=== PATIENT | male | born 1990 | race Caucasian/White ===

== ENCOUNTER 2016-09-23 20:22 | Emergency (ER) | payer OTHER, SELFPAY ==
[2016-09-23 20:31] VITALS: O2SAT 99
[2016-09-23] MEDS ORDERED: Tetcaine HCl OPHTHALMIC OP ONE ×2 (20:40→20:49)
[2016-09-23] MEDS ORDERED: Fluor-I-Strip/Ful-Flo OP ONE ×2 (20:40→20:49)
[2016-09-23] MEDS ORDERED: Eye-Stream Solution ONE (20:56)
[2016-09-23] MEDS ORDERED: Adacel Vial IM ONE ×2 (21:05→21:14)
[2016-09-23] MEDS ORDERED: Eye-Stream Solution OP ONE (21:05)
[2016-09-23] MEDS ORDERED: Ciloxan OPHTH OP ONE (21:05)
[2016-09-23] MEDS ORDERED: Ciloxan OPHTH ONE (21:11)
--- NOTE | 2016-09-23 21:34 | ERPHSYRPT ---
- History of Present Illness Time Seen by Provider: 09/23/16 20:25 Source: patient Patient Subjective Stated Complaint: Pt sts was cutting something with dremel and blade particle struck left eye. Pt sts vision is blurry. Denies wearing contacts or glasses. Sts no pain in eye. Triage Nursing Assessment: Pt alert, oriented, answers all questions appropriately. Skin p/w/d, resps non-labored. Pt ambulatory without difficulty, steady gait noted. Lt eye appears blood-shot. Possible area of injury noted to medial aspect of sclera. Redness noted to upper eyelid. Physician History: CC: left eye injury Hx: 26 y/o male was using a dremel tool. While eyes closed something struck left eye and bounced off the led. He had some blurry vision and a little redness in the eye so came to ER. No hx of glasses or contacts. Unsure last tetanus vaccine. 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 due to severe ADHD) - Past Surgical History Past Surgical History: Yes Musculoskeletal: Orthopedic Surgery Other Surgical History: left - Social History Smoking Status: Never smoker Exposure to second hand smoke: No Drug Use: none Patient Lives Alone: No (here with family, states does not work) - Nursing Vital Signs Nursing Vital Signs: Initial Vital Signs Temperature 98.1 F Temperature Source Oral Pulse Rate 80 Respiratory Rate 16 Blood Pressure 155/80 Pain Intensity 0 - Physical Exam General Appearance: alert Vision Acuity Degree Evaluation Phase: Uncorrected Vision Acuity Right Eye: 20/30 Vision Acuity Left Eye: 20/70 Ears, Nose, Throat Exam: normal ENT inspection, moist mucous membranes Neck Exam: supple Neurologic: alert, oriented x 3, cooperative Skin Exam: warm, dry SpO2: 99 Oxygen Delivery: Room Air Comments: left eyelide has abrasion medially. PERRL. No hyphema visible. EOMI. Tetracaine drop applied. Lid everted with no visible FB. No corneal fluoroscein uptake. IOP by tonopen 26 left 20 right. The scleral of left medial eye has some abrasion. No FB seen. Noel xray without evidence of metallic FB. - Course Nursing assessment & vital signs reviewed: Yes Ordered Tests: Active Orders 24 hr Category Date Time Status Visual Acuity STAT Care 09/23/16 20:40 Active ORBITS FOREIGN BODIES (EYE) Stat Exams 09/23/16 21:06 Taken Medication Summary Discontinued Medications Generic Name Dose Route Start Last Admin Trade Name Freq PRN Reason Stop Dose Admin Ciprofloxacin 2.5 ml 09/23/16 21:05 09/23/16 21:13 Ciloxan Ophth OP 09/23/16 21:06 2.5 ml STAT ONE Administration Ciprofloxacin Confirm 09/23/16 21:11 Ciloxan Ophth Administered 09/23/16 21:12 Dose 2.5 ml .ROUTE .STK-MED ONE Diphtheria/Tetanus/Acell Pertussis 0.5 ml 09/23/16 21:05 09/23/16 21:13 Adacel Vial IM 09/23/16 21:06 0.5 ml .ONCE ONE Administration Diphtheria/Tetanus/Acell Pertussis Confirm 09/23/16 21:14 Adacel Vial Administered 09/23/16 21:15 Dose 0.5 ml IM .STK-MED ONE Eye Irrigation Solution Confirm 09/23/16 20:56 Eye-Stream Solution Administered 09/23/16 20:57 Dose 30 ml .ROUTE .STK-MED ONE Eye Irrigation Solution 15 ml 09/23/16 21:05 09/23/16 21:13 Eye-Stream Solution OP 09/23/16 21:06 15 ml STAT ONE Administration Fluorescein Sodium 1 mg 09/23/16 20:40 09/23/16 20:50 Odtkq-F-Ypmse/Ful-Marcelino OP 09/23/16 20:41 1 mg STAT ONE Administration Fluorescein Sodium Confirm 09/23/16 20:49 Otrng-P-Mptuw/Ful-Marcelino Administered 09/23/16 20:50 Dose 1 mg OP .STK-MED ONE Tetracaine HCl 2 ml 09/23/16 20:40 09/23/16 20:50 Tetcaine Hcl Ophthalmic OP 09/23/16 20:41 2 ml STAT ONE Administration Tetracaine HCl Confirm 09/23/16 20:49 Tetcaine Hcl Ophthalmic Administered 09/23/16 20:50 Dose 2 ml OP .STK-MED ONE - Progress Progress Note: 09/23/16 21:32 Tetanus vaccine updated. Cipro gtts started. Advised he see senior electrical engineer tomorrow. He plans to see Dr Vicente OD tomorrow. Eye instr given. - Departure Time of Disposition: 21:33 Departure Disposition: Home Clinical Impression: Contusion, eye, left, ocular pressure elevation Condition: Stable Critical Care Time: No Referrals: RICCO MARTINEZ [Primary Care Provider] - ZOE UREÑA [NON-STAFF PHY W/O PRIVILEGES] - Instructions: Eye Contusion Additional Instructions: Do not rub eye. Cipro 1 drop left eye every 6 hours. SEe eye doctor tomorrow for recheck.
[2016-09-23 21:47] VITALS: BP 127/68; PULSE 79
--- NOTE | 2016-09-24 08:37 | XRAY ---
Indication: Possible left eye foreign body. Comparison: None Single Noel' view of the skull negative for radiopaque foreign body. Small fluid leveling in the left maxillary sinus. No other bony or soft tissue abnormalities.
== END 2016-09-23 21:46 | disposition home or self-care (01) ==
LOC: ED 20:22
DX: S05.12XA Contusion of eyeball and orbital tissues, left eye, initial encounter (principal); W22.8XXA Striking against or struck by other objects, initial encounter
CPT/HCPCS: 70030; 90715; 99283

== ENCOUNTER 2017-08-09 05:01 | Emergency (ER) | payer OTHER, SELFPAY ==
[2017-08-09] MEDS ORDERED: Sodium Chloride 0.9% 1000 ML 1,000 ML IV STA (05:24)
[2017-08-09] MEDS ORDERED: Phenergan 25 MG INJ IV ONE (05:24)
[2017-08-09] MEDS ORDERED: Sodium Chloride 0.9% 1000 ML 1,000 ML ONE (05:30)
[2017-08-09] MEDS ORDERED: Phenergan 25 MG INJ ONE (05:30)
--- NOTE | 2017-08-09 05:32 | ERPHSYRPT ---
- History of Present Illness Time Seen by Provider: 08/09/17 05:19 Historian: patient Exam Limitations: no limitations Patient Subjective Stated Complaint: pt states he has vomited approx 25 times since 11pm last night. states he has chest pain when he vomits. and states he has been having diarrhea approx every 10 minutes since 11pm Triage Nursing Assessment: pt alert and oriented, asnwers questions approp. pt ambultory with steady gait noted. respirations nonlabored with lungs cta. skin pink warm and dry. abd soft and nontender, bowel sounds present. no emesis or diarrhea at this time. Physician History: FOR THE PAST 6 HOURS PT HAS HAD DIARRHEA X15 WITHOUT BLOOD; FOR THE PAST 5 HOURS VOMITING X15 WITHOUT BLOOD; TONIGHT A NON-PRODUCTIVE COUGH. PT STATES HE HAS CHEST PAIN AND SHORTNESS OF AIR WITH VOMITING EPISODES. PT DENIES FEVER, DYSURIA, RASH. Allergies/Adverse Reactions: No Known Drug Allergies Allergy (Verified 08/09/17 05:15) Home Medications: No Home Meds [No Home Meds] 0 mg PO DAILY 06/01/13 [History] Hx Tetanus, Diphtheria Vaccination/Date Given: No (unknown) Hx Influenza Vaccination/Date Given: No Hx Pneumococcal Vaccination/Date Given: No Immunizations Up to Date: No - Review of Systems Constitutional: No Fever Respiratory: Cough, Dyspnea Cardiac: Chest Pain Abdominal/Gastrointestinal: Vomiting, Diarrhea Genitourinary Symptoms: No Dysuria Skin: No Rash Neurological: No Headache All Other Systems: Reviewed and Negative - Past Medical History Pertinent Past Medical History: No Neurological History: Other - Past Surgical History Past Surgical History: Yes Musculoskeletal: Orthopedic Surgery Other Surgical History: left knee - Social History Smoking Status: Never smoker Exposure to second hand smoke: No Drug Use: none Patient Lives Alone: No - Nursing Vital Signs Nursing Vital Signs: Initial Vital Signs Temperature 98.1 F 08/09/17 05:05 Pulse Rate 111 H 08/09/17 05:05 Respiratory Rate 20 08/09/17 05:05 Blood Pressure 138/91 08/09/17 05:05 O2 Sat by Pulse Oximetry 96 08/09/17 05:05 Pain Scale Pain Intensity 5 - Physical Exam General Appearance: alert Eye Exam: PERRL/EOMI Ears, Nose, Throat Exam: TMs normal, dry mucous membranes Neck Exam: normal inspection Respiratory Exam: lungs clear Cardiovascular Exam: tachycardia Gastrointestinal/Abdomen Exam: soft, other (B.S. MILDLY HYPERACTIVE AND NORMOTONIC) Back Exam: normal range of motion Extremity Exam: normal inspection, No pedal edema Neurologic Exam: alert, cooperative Skin Exam: warm, dry SpO2 Interpretation: normal SpO2: 96 Oxygen Delivery: Room Air - Course Nursing assessment & vital signs reviewed: Yes EKG Interpreted by Me: RATE ([id number]), Sinus Tach, NORMAL AXIS, NORMAL INTERVALS Ordered Tests: Active Orders 24 hr Category Date Time Status Clean Catch Urine Specimen STAT Care 08/09/17 05:24 Active EKG-ER Only STAT Care 08/09/17 05:24 Active IV Insertion STAT Care 08/09/17 05:24 Active OBSTR/ACUTE ABDOMEN SERIES Stat Exams 08/09/17 05:25 Taken AMYLASE Stat Lab 08/09/17 05:45 Completed CBC W DIFF Stat Lab 08/09/17 05:45 Completed CMP Stat Lab 08/09/17 05:45 Completed LIPASE Stat Lab 08/09/17 05:45 Completed Lactic Acid Stat Lab 08/09/17 05:40 Completed MAG [MAGNESIUM] Stat Lab 08/09/17 05:45 Completed Manual Differential NC Stat Lab 08/09/17 05:45 Completed TROPONIN Q3H Lab 08/09/17 05:45 Completed TROPONIN Q3H Lab 08/09/17 08:30 Ordered TROPONIN Q3H Lab 08/09/17 11:30 Ordered TROPONIN Q3H Lab 08/09/17 14:30 Ordered TROPONIN Q3H Lab 08/09/17 17:30 Ordered UA W/RFX UR CULTURE Stat Lab 08/09/17 06:33 Completed Urine Triage Profile Stat Lab 08/09/17 05:24 Ordered Medication Summary Discontinued Medications Generic Name Dose Route Start Last Admin Trade Name Freq PRN Reason Stop Dose Admin Sodium Chloride 1,000 mls @ 999 mls/hr 08/09/17 05:24 08/09/17 05:33 Sodium Chloride 0.9% 1000 Ml IV 08/09/17 06:24 999 mls/hr .Q1H1M STA Administration Sodium Chloride Confirm 08/09/17 05:30 Sodium Chloride 0.9% 1000 Ml Administered 08/09/17 05:31 Dose 1,000 mls @ ud .ROUTE .STK-MED ONE Promethazine HCl 12.5 mg 08/09/17 05:24 08/09/17 05:35 Phenergan 25 Mg Inj IV 08/09/17 05:25 12.5 mg STAT ONE Administration Promethazine HCl Confirm 08/09/17 05:30 Phenergan 25 Mg Inj Administered 08/09/17 05:31 Dose 25 mg .ROUTE .STK-MED ONE Lab/Rad Data: Laboratory Result Diagrams 08/09/17 05:45 08/09/17 05:45 Laboratory Results 08/09/17 08/09/17 08/09/17 Range/Units 06:33 05:45 05:45 WBC (4.0-10.5) K/mm3 RBC (4.1-5.6) M/mm3 Hgb (12.5-18.0) gm/dl Hct (42-50) % MCV (78-100) fl MCH (26-32) pg MCHC (32-36) g/dl RDW (11.5-14.0) % Plt Count (150-450) K/mm3 MPV (6-9.5) fl Sodium (136-145) mEq/L Potassium (3.5-5.1) mEq/L Chloride (98-107) mEq/L Carbon Dioxide (21-32) mEq/L Anion Gap (5-15) MEQ/L BUN (9-20) mg/dL Creatinine (0.55-1.30) mg/dl Estimated GFR ML/MIN Glucose (70-110) MG/DL Lactic Acid (0.4-2.0) Calcium (8.5-10.1) mg/dL Magnesium 1.7 L (1.8-2.4) mg/dL Total Bilirubin (0.2-1.0) mg/dL AST (15-37) U/L ALT (12-78) U/L Alkaline Phosphatase (46-116) U/L Troponin I < 0.017 (0.000-0.056) ng/ml Serum Total Protein (6.4-8.2) gm/dL Albumin (3.4-5.0) g/dL Amylase (25-115) U/L Lipase (73-393) U/L Ur Collection Type VOID Urine Color YELLOW (YELLOW) Urine Appearance CLEAR (CLEAR) Urine pH 5.0 (5-6) Ur Specific [place] 1.010 (1.005-1.025) Urine Protein NEGATIVE (Negative) Urine Ketones NEGATIVE (NEGATIVE) Urine Blood NEGATIVE (0-5) Frederic/ul Urine Nitrite NEGATIVE (NEGATIVE) Urine Bilirubin SMALL (NEGATIVE) Urine Urobilinogen NORMAL (0-1) mg/dL Ur Leukocyte Esterase NEGATIVE (NEGATIVE) Urine Culture Reflexed NO (NO) Urine Glucose NEGATIVE (NEGATIVE) mg/dL Specimen Received 08/09/17 0633 08/09/17 08/09/17 08/09/17 Range/Units 05:45 05:45 05:40 WBC 15.3 H (4.0-10.5) K/mm3 RBC 5.13 (4.1-5.6) M/mm3 Hgb 14.8 (12.5-18.0) gm/dl Hct 44.3 (42-50) % MCV 86.4 (78-100) fl MCH 28.8 (26-32) pg MCHC 33.4 (32-36) g/dl RDW 13.4 (11.5-14.0) % Plt Count 166 (150-450) K/mm3 MPV 10.1 H (6-9.5) fl Sodium 144 (136-145) mEq/L Potassium 4.1 (3.5-5.1) mEq/L Chloride 105 (98-107) mEq/L Carbon Dioxide 25.1 (21-32) mEq/L Anion Gap 17.7 H (5-15) MEQ/L BUN 23 H (9-20) mg/dL Creatinine 1.09 (0.55-1.30) mg/dl Estimated GFR > 60 ML/MIN Glucose 131 H (70-110) MG/DL Lactic Acid 1.8 (0.4-2.0) Calcium 8.9 (8.5-10.1) mg/dL Magnesium (1.8-2.4) mg/dL Total Bilirubin 1.10 H (0.2-1.0) mg/dL AST 29 (15-37) U/L ALT 52 (12-78) U/L Alkaline Phosphatase 72 (46-116) U/L Troponin I (0.000-0.056) ng/ml Serum Total Protein 8.3 H (6.4-8.2) gm/dL Albumin 4.7 (3.4-5.0) g/dL Amylase 73 (25-115) U/L Lipase 244 (73-393) U/L Ur Collection Type Urine Color (YELLOW) Urine Appearance (CLEAR) Urine pH (5-6) Ur Specific [place] (1.005-1.025) Urine Protein (Negative) Urine Ketones (NEGATIVE) Urine Blood (0-5) Frederic/ul Urine Nitrite (NEGATIVE) Urine Bilirubin (NEGATIVE) Urine Urobilinogen (0-1) mg/dL Ur Leukocyte Esterase (NEGATIVE) Urine Culture Reflexed (NO) Urine Glucose (NEGATIVE) mg/dL Specimen Received - Departure Time of Disposition: 07:10 Departure Disposition: Home Clinical Impression: VOMITING, DIARRHEA, MILD HYPOMAGNESEMIA Condition: Stable Critical Care Time: No Referrals: RICCO MARTINEZ [Primary Care Provider] - Instructions: Diarrhea and Traveler's Diarrhea -- Adult, Vomiting -- Adult Additional Instructions: FOLLOW UP WITH PRIVATE DOCTOR TOMORROW. START CLEAR LIQUIDS FOR 24 HOURS FOLLOWED BY A SOFT BLAND DIET. NO MILK OR JUICE FOR 2 DAYS. Prescriptions: Ondansetron [Zofran Odt] 4 mg PO Q4H PRN PRN #14 tab.rapdis PRN Reason: Nausea/Vomiting
[2017-08-09 06:00] LABS: Mean Cell Volume 86.4 fl (78-100); Mean Corpuscular Hemoglobin 28.8 pg (26-32); Mean Platelet Volume 10.1 fl (6-9.5); Platelet Count 166 K/mm3 (150-450); Red Blood Count 5.13 M/mm3 (4.1-5.6); Red Cell Distribution Width 13.4 % (11.5-14.0); White Blood Count 15.3 K/mm3 (4.0-10.5)
[2017-08-09 06:24] LABS: ALBUMIN 4.7 g/dL (3.4-5.0); ALKALINE PHOSPHATASE 72 U/L (46-116); ANION GAP 17.7 MEQ/L (5-15); BLOOD UREA NITROGEN 23 mg/dL (9-20); CHLORIDE 105 mEq/L (98-107); Carbon Dioxide 25.1 mEq/L (21-32); Glucose 131 MG/DL (70-110); LIPASE 244 U/L (73-393); Potassium 4.1 mEq/L (3.5-5.1); SGOT/AST 29 U/L (15-37); SGPT/ALT 52 U/L (12-78); SODIUM 144 mEq/L (136-145); Total Protein 8.3 gm/dL (6.4-8.2)
[2017-08-09 06:52] LABS: Collection Type VOID; Glucose NEGATIVE (NEGATIVE); Leukocyte Esterase NEGATIVE (NEGATIVE)
[2017-08-09 06:53] LABS: ADD URINE CULTURE? NO (NO); Bilirubin SMALL (NEGATIVE); Blood NEGATIVE Ery/ul (0-5); COMPLETE URINE MICROSCOPIC? NO
[2017-08-09 07:10] VITALS: O2SAT 96
[2017-08-09] MEDS ORDERED: MAG-OX 400 PO ONE (07:14)
[2017-08-09] MEDS ORDERED: MAG-OX 400 ONE (07:16)
[2017-08-09 07:42] VITALS: BP 127/80; PULSE 88
[2017-08-09 07:55] LABS: Platelet Estimate NORMAL (NORMAL); Total Cells Counted 100
--- NOTE | 2017-08-09 08:29 | XRAY ---
Indication: Chest pain, nausea, vomiting, diarrhea, and fever. Comparison: Chest exam June 01, 2013. 2 views of the abdomen nonacute and nonobstructed. Solid organs and osseous structures unremarkable. Single PA chest again demonstrates normal heart, lungs, and bony thorax. Impression: Negative abdomen. Stable normal one view chest.
[2017-08-09] MEDS ORDERED: MAG-OX 400 PO SCH (10:00)
== END 2017-08-09 07:34 | disposition home or self-care (01) ==
LOC: ED 05:01
DX: R11.10 Vomiting, unspecified (principal); R19.7 Diarrhea, unspecified; F30.8 Other manic episodes; R05 Cough
CPT/HCPCS: 36000; 36415; 74022; 80053; 80307; 81002; 82150; 83605; 83690; 83735; 84484; 85025; 93005; 96360; 96374; 99284; J2550; A9270-GY

== ENCOUNTER 2019-08-07 07:13 | Emergency (ER) | payer OTHER ==
[2019-08-07] MEDS ORDERED: PROTONIX 40 MG IV IV ONE ×2 (08:03→08:12)
[2019-08-07] MEDS ORDERED: Zofran 4 MG/2 ML VIAL IV ONE (08:03)
[2019-08-07] MEDS ORDERED: Sodium Chloride 0.9% 1000 ML 1,000 ML IV STA (08:03)
[2019-08-07 08:11] LABS: Absolute Neutrophil Ct (ANC) 12.65 (1.4-6.9); BASOPHIL % 0.1 % (0.0-0.4); Basophil (Absolute #) 0.01 (0-0.4); Eosinophil % 0.7 % (0.00-5.0); Eosinophil (Absolute #) 0.11 (0-0.5); Hematocrit 43.1 % (42-50); Hemoglobin 14.9 gm/dl (12.5-18.0); Lymphocyte (Absolute #) 1.57 (1.0-4.6); Lymphocytes % 10.5 % (24.0-44.0); Mean Cell Volume 86.5 fl (78-100); Mean Corpuscular Hemoglobin 29.9 pg (26-32); Mean Corpuscular Hgb Concent. 34.6 g/dl (32-36); Mean Platelet Volume 10.3 fl (6-9.5); Monocyte (Absolute #) 0.67 (0.0-1.3); Monocytes % 4.5 % (0.0-12.0); Neutrophil % 84.2 % (36.0-66.0); Platelet Count 237 K/mm3 (150-450); Red Blood Count 4.98 M/mm3 (4.1-5.6); Red Cell Distribution Width 13.3 % (11.5-14.0)
[2019-08-07] MEDS ORDERED: MORPHINE SULFATE 2 MG INJ ONE (08:12)
[2019-08-07] MEDS ORDERED: Zofran 4 MG/2 ML VIAL ONE (08:12)
[2019-08-07] MEDS ORDERED: Sodium Chloride 0.9% 1000 ML 1,000 ML ONE (08:12)
[2019-08-07] MEDS: MORPHINE SULFATE 2 MG INJ IV ONE ×2 (08:14→08:24)
[2019-08-07 08:21] LABS: ALBUMIN 5.1 g/dL (3.5-5.0); ALKALINE PHOSPHATASE 72 U/L (38-126); AMYLASE 78 U/L (30-110); ANION GAP 15.5 MEQ/L (5-15); BLOOD UREA NITROGEN 16 mg/dL (9-20); CHLORIDE 100 mmol/L (98-107); Calcium 10.2 mg/dL (8.4-10.2); Carbon Dioxide 30 mmol/L (22-30); Creatinine 1 0.97 mg/dL (0.66-1.25); Glucose 136 mg/dL (74-106); LIPASE 102 U/L (23-300); Potassium 4.1 mmol/L (3.5-5.1); SGOT/AST 26 U/L (17-59); SGPT/ALT 24 U/L (0-50); SODIUM 141 mmol/L (137-145); Total Protein 8.9 g/dL (6.3-8.2)
--- NOTE | 2019-08-07 08:59 | ERPHSYRPT ---
- History of Present Illness Time Seen by Provider: 08/07/19 07:40 Historian: patient, family Exam Limitations: no limitations Patient Subjective Stated Complaint: Pt has been having diarrhea and vomiting since Triage Nursing Assessment: Pt walked into the ER with active diarrhea, tachycardic, pulses normal, bowel sounds heard in all 4, tender w/palp in LUQ, denies pain Physician History: patient is a 29-year-old white male who presents with abdominal pain multiple diarrhea stools and vomiting at least 6 times since 5 AM. He has had some sweats and chills but no documented fever there has been reported gastrointestinal symptoms and several household members. His only wrote past medical history is some knee surgery. His only complaint of pain is primarily in the left lower quadrant. Allergies/Adverse Reactions: No Known Drug Allergies Allergy (Verified 08/07/19 07:27) Home Medications: Atomoxetine HCl 40 mg PO DAILY 08/07/19 [History] Omeprazole 20 mg PO DAILY 08/07/19 [History] Hx Tetanus, Diphtheria Vaccination/Date Given: No (unknown) Hx Influenza Vaccination/Date Given: No Hx Pneumococcal Vaccination/Date Given: No - Review of Systems Constitutional: No Fever, No Chills Eyes: No Symptoms Ears, Nose, & Throat: No Symptoms Respiratory: No Cough, No Dyspnea Cardiac: No Chest Pain, No Edema, No Syncope Abdominal/Gastrointestinal: Abdominal Pain, Nausea, Vomiting, Diarrhea Genitourinary Symptoms: No Dysuria Musculoskeletal: No Back Pain, No Neck Pain Skin: No Rash Neurological: No Dizziness, No Focal Weakness, No Sensory Changes Psychological: No Symptoms Endocrine: No Symptoms All Other Systems: Reviewed and Negative - Past Medical History Pertinent Past Medical History: No Neurological History: Other - Past Surgical History Past Surgical History: Yes Musculoskeletal: Orthopedic Surgery Other Surgical History: left knee - Social History Smoking Status: Never smoker Exposure to second hand smoke: No Drug Use: none Patient Lives Alone: No - Nursing Vital Signs Nursing Vital Signs: Initial Vital Signs Temperature 97.3 F 08/07/19 07:16 Pulse Rate 109 H 08/07/19 07:16 Blood Pressure 131/97 08/07/19 07:16 O2 Sat by Pulse Oximetry 98 08/07/19 07:16 Pain Scale Pain Intensity 0 - Physical Exam General Appearance: no apparent distress, alert Eye Exam: PERRL/EOMI, eyes nml inspection Ears, Nose, Throat Exam: normal ENT inspection, pharynx normal, moist mucous membranes Neck Exam: normal inspection, non-tender, supple, full range of motion Respiratory Exam: normal breath sounds, lungs clear, No respiratory distress Cardiovascular Exam: regular rate/rhythm, normal heart sounds Gastrointestinal/Abdomen Exam: soft, normal bowel sounds, tenderness, No mass, No guarding Male Genitalia Exam: normal genitalia Back Exam: normal inspection, normal range of motion, No CVA tenderness, No vertebral tenderness Extremity Exam: normal inspection, normal range of motion, pelvis stable Neurologic Exam: alert, oriented x 3, cooperative, normal mood/affect, nml cerebellar function, sensation nml, No motor deficits Skin Exam: normal color, warm, dry SpO2: 98 - CT Exams Abdomen/Pelvis CT Interpretation: Other (patient is demanding to leave even though his CT scan report is not back yet. He is refusing IV fluids) Ordered Tests: Active Orders 24 hr Category Date Time Status IV Insertion STAT Care 08/07/19 08:03 Active ABDOMEN AND PELVIS W CONTRAST [CT] Stat Exams 08/07/19 08:04 Taken AMYLASE Stat Lab 08/07/19 08:09 Completed CBC W DIFF Stat Lab 08/07/19 08:09 Completed CMP Stat Lab 08/07/19 08:09 Completed LIPASE Stat Lab 08/07/19 08:09 Completed Lactic Acid Stat Lab 08/07/19 08:17 Completed Occult Blood, Other Screening Stat Lab 08/07/19 08:09 Completed UA W/RFX UR CULTURE Stat Lab 08/07/19 08:03 Uncollected Transfer Order Routine Transfer 08/07/19 Ordered Medication Summary Generic Name Dose Route Start Last Admin Trade Name Freq PRN Reason Stop Dose Admin Sodium Chloride 1,000 mls @ 999 mls/hr 08/07/19 08:03 08/07/19 08:13 Sodium Chloride 0.9% 1000 Ml IV 08/07/19 09:03 999 mls/hr .Q1H1M STA Administration Discontinued Medications Generic Name Dose Route Start Last Admin Trade Name Freq PRN Reason Stop Dose Admin Sodium Chloride Confirm 08/07/19 08:12 Sodium Chloride 0.9% 1000 Ml Administered 08/07/19 08:13 Dose 1,000 mls @ ud .ROUTE .STK-MED ONE Morphine Sulfate 2 mg 08/07/19 08:03 08/07/19 08:24 Morphine Sulfate 2 Mg Inj IV 08/07/19 08:04 Not Given STAT ONE Morphine Sulfate Confirm 08/07/19 08:12 Morphine Sulfate 2 Mg Inj Administered 08/07/19 08:13 Dose 2 mg .ROUTE .STK-MED ONE Ondansetron HCl 4 mg 08/07/19 08:03 08/07/19 08:13 Zofran 4 Mg/2 Ml Vial IV 08/07/19 08:04 4 mg STAT ONE Administration Ondansetron HCl Confirm 08/07/19 08:12 Zofran 4 Mg/2 Ml Vial Administered 08/07/19 08:13 Dose 4 mg .ROUTE .STK-MED ONE Pantoprazole Sodium 40 mg 08/07/19 08:03 08/07/19 08:13 Protonix 40 Mg Iv IV 08/07/19 08:04 40 mg STAT ONE Administration Pantoprazole Sodium Confirm 08/07/19 08:12 Protonix 40 Mg Iv Administered 08/07/19 08:13 Dose 40 mg IV .STK-MED ONE Lab/Rad Data: Laboratory Result Diagrams 08/07/19 08:09 08/07/19 08:09 Laboratory Results 08/07/19 08/07/19 08/07/19 Range/Units 08:17 08:09 08:09 WBC (4.0-10.5) K/mm3 RBC (4.1-5.6) M/mm3 Hgb (12.5-18.0) gm/dl Hct (42-50) % MCV (78-100) fl MCH (26-32) pg MCHC (32-36) g/dl RDW (11.5-14.0) % Plt Count (150-450) K/mm3 MPV (6-9.5) fl Gran % (36.0-66.0) % Eos # (Auto) (0-0.5) Absolute Lymphs (auto) (1.0-4.6) Absolute Monos (auto) (0.0-1.3) Lymphocytes % (24.0-44.0) % Monocytes % (0.0-12.0) % Eosinophils % (0.00-5.0) % Basophils % (0.0-0.4) % Absolute Granulocytes (1.4-6.9) Basophils # (0-0.4) Sodium 141 (137-145) mmol/L Potassium 4.1 (3.5-5.1) mmol/L Chloride 100 (98-107) mmol/L Carbon Dioxide 30 (22-30) mmol/L Anion Gap 15.5 H (5-15) MEQ/L BUN 16 (9-20) mg/dL Creatinine 0.97 (0.66-1.25) mg/dL Estimated GFR > 60.0 ML/MIN Glucose 136 H (74-106) mg/dL Lactic Acid 1.2 (0.4-2.0) Calcium 10.2 (8.4-10.2) mg/dL Total Bilirubin 0.70 (0.2-1.3) mg/dL AST 26 (17-59) U/L ALT 24 (0-50) U/L Alkaline Phosphatase 72 (38-126) U/L Serum Total Protein 8.9 H (6.3-8.2) g/dL Albumin 5.1 H (3.5-5.0) g/dL Amylase 78 (30-110) U/L Lipase 102 (23-300) U/L Stool Occult Blood NEGATIVE (Negative) 08/07/19 Range/Units 08:09 WBC 15.0 H (4.0-10.5) K/mm3 RBC 4.98 (4.1-5.6) M/mm3 Hgb 14.9 (12.5-18.0) gm/dl Hct 43.1 (42-50) % MCV 86.5 (78-100) fl MCH 29.9 (26-32) pg MCHC 34.6 (32-36) g/dl RDW 13.3 (11.5-14.0) % Plt Count 237 (150-450) K/mm3 MPV 10.3 H (6-9.5) fl Gran % 84.2 H (36.0-66.0) % Eos # (Auto) 0.11 (0-0.5) Absolute Lymphs (auto) 1.57 (1.0-4.6) Absolute Monos (auto) 0.67 (0.0-1.3) Lymphocytes % 10.5 L (24.0-44.0) % Monocytes % 4.5 (0.0-12.0) % Eosinophils % 0.7 (0.00-5.0) % Basophils % 0.1 (0.0-0.4) % Absolute Granulocytes 12.65 H (1.4-6.9) Basophils # 0.01 (0-0.4) Sodium (137-145) mmol/L Potassium (3.5-5.1) mmol/L Chloride (98-107) mmol/L Carbon Dioxide (22-30) mmol/L Anion Gap (5-15) MEQ/L BUN (9-20) mg/dL Creatinine (0.66-1.25) mg/dL Estimated GFR ML/MIN Glucose (74-106) mg/dL Lactic Acid (0.4-2.0) Calcium (8.4-10.2) mg/dL Total Bilirubin (0.2-1.3) mg/dL AST (17-59) U/L ALT (0-50) U/L Alkaline Phosphatase (38-126) U/L Serum Total Protein (6.3-8.2) g/dL Albumin (3.5-5.0) g/dL Amylase (30-110) U/L Lipase (23-300) U/L Stool Occult Blood (Negative) - Progress Progress: improved (patient is refusing his IV fluids and demanding to be released. He does have an elevated white count and his CT report is pending.) - Departure Departure Disposition: Home Clinical Impression: Gastroenteritis Condition: Stable Critical Care Time: No Referrals: RICCO MARTINEZ [Primary Care Provider] - Prescriptions: Ondansetron HCl [Zofran] 4 mg PO Q6H 3 Days #10 tablet
[2019-08-07 09:06] LABS: 027 TOX PROD PRESUMPTIVE NEGATIVE (NEGATIVE); TOXIGENIC C. DIFF ORG NEGATIVE (NEGATIVE)
[2019-08-07 09:49] VITALS: BP 118/90; PULSE 95; O2SAT 100
[2019-08-07 10:58] LABS: Adenovirus F 40/41 NEGATIVE (NEGATIVE); Astrovirus NEGATIVE (NEGATIVE); C. Difficile Organism NEGATIVE (NEGATIVE); Campylobacter NEGATIVE (NEGATIVE); Cryptosporidium NEGATIVE (NEGATIVE); Cyclospora cayentanensis NEGATIVE (NEGATIVE); Entamoeaba histolytica NEGATIVE (NEGATIVE); Enteroaggregative E.coli NEGATIVE (NEGATIVE); Enteropathogenic E.coli NEGATIVE (NEGATIVE); Enterotoxigenic E.coli NEGATIVE (NEGATIVE); Giardia lamblia NEGATIVE (NEGATIVE); Norovirus GI/GII NEGATIVE (NEGATIVE); Plesiomonas shigelloides NEGATIVE (NEGATIVE); Rotavirus A NEGATIVE (NEGATIVE); Salmonella NEGATIVE (NEGATIVE); Sapovirus NEGATIVE (NEGATIVE); Shiga-like toxin prod.E.coli NEGATIVE (NEGATIVE); Vibrio NEGATIVE (NEGATIVE); Vibrio cholerae NEGATIVE (NEGATIVE); Yersinia enterocolitica NEGATIVE (NEGATIVE)
--- NOTE | 2019-08-07 15:39 | XRAY ---
Indication: Diarrhea. Multiple contiguous axial images obtained through the abdomen and pelvis using 80 cc Isovue 370 contrast only as ordered. Comparison: None Lung bases are clear. Heart is not enlarged. Noncontrasted stomach and bowel loops appear nonobstructed. Normal appendix. Mild fluid distended colon consistent with clinically reported diarrhea. No inflammatory changes or free fluid/air. Remaining liver, gallbladder, pancreas, spleen, adrenal glands, kidneys, ureters, bladder, and aorta appear unremarkable. No pathological retroperitoneal lymphadenopathy. Osseous structures intact. Impression: Mild fluid distended colon favoring clinically reported diarrhea. Remaining CT abdomen/pelvis with contrast exam is negative. Comment: Preliminary interpretation was made by [facility]. No critical discrepancy. CTDI 6.30
== END 2019-08-07 09:47 | disposition home or self-care (01) ==
LOC: ED 07:13
DX: K52.9 Noninfective gastroenteritis and colitis, unspecified (principal)
CPT/HCPCS: 36415; 74177; 80053; 82150; 82272; 83605; 83690; 85025; 87493; 87507; 96374; 96375; 99284; J2270; J2405

== ENCOUNTER 2024-11-22 15:45 | Emergency (ER) | payer OTHER ==
[2024-11-22 16:44] VITALS: TEMP 97.8
--- NOTE | 2024-11-22 17:17 | ERPHSYRPT ---
- History of Present Illness Time Seen by Provider: 11/22/24 17:51 Source: patient Exam Limitations: no limitations Patient Subjective Stated Complaint: C/O left eye redness and corner of left mouth droop. Denies pain. Denies any changes in his vision. Triage Nursing Assessment: Patient ambulated back to ER without difficulties. He is alert and oriented. No drainage noted to left eye. Left eye is red. Left corner of mouth is drooped. DUARTE WNL. Skin tone normal. 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 Symptoms started approximately 4 days ago. However prior to patient was having some eye redness and URI symptomology. Patient followed up with his primary care doctor who ordered him eyedrops. Shortly after that visit patient developed a facial droop. Symptoms have been ongoing for 4 days. No associated numbness tingling. No trauma no fever. No headache no neck pain. No photophobia. No history of strokes. Patient otherwise feels well. at bedside. They voiced no other complaints or concerns at this time. Portions of this note were created with voice recognition technology. There may be grammatical, spelling, punctuation or sound alike errors Timing/Duration: day(s) (4 days ago) Severity: moderate Modifying Factors: Improves With: nothing Associated Symptoms: denies symptoms Allergies/Adverse Reactions: red dye Adverse Reaction (Verified 11/22/24 16:36) Home Medications: Ascorbate Calcium [Vitamin C] 500 mg PO DAILY 11/22/24 [History] Hx Tetanus, Diphtheria Vaccination/Date Given: No (unknown) Hx Influenza Vaccination/Date Given: No Hx Pneumococcal Vaccination/Date Given: No Travel Risk - International Travel Have you traveled outside of the country in past 3 weeks: No - Emerging Infectious Disease Are you exhibiting symptoms associated with any current EIDs: No - Review of Systems Constitutional: No Symptoms, No Fever, No Chills Eyes: No Symptoms Ears, Nose, & Throat: No Symptoms Respiratory: No Symptoms, No Cough, No Dyspnea Cardiac: No Symptoms, No Chest Pain, No Edema, No Syncope Abdominal/Gastrointestinal: No Symptoms, No Abdominal Pain, No Nausea, No Vomiting, No Diarrhea Genitourinary Symptoms: No Symptoms, No Dysuria Musculoskeletal: No Symptoms, No Back Pain, No Neck Pain Skin: No Symptoms, No Rash Neurological: No Symptoms, No Dizziness, No Focal Weakness, No Sensory Changes Psychological: No Symptoms Endocrine: No Symptoms Hematologic/Lymphatic: No Symptoms Immunological/Allergic: No Symptoms All Other Systems: Reviewed and Negative - Past Medical History Pertinent Past Medical History: Yes - Past Surgical History Past Surgical History: Yes Musculoskeletal: Orthopedic Surgery Other Surgical History: left knee - Social History Smoking Status: Never smoker Exposure to second hand smoke: No Drug Use: none - Social Determinants of Health Will the patient participate in the screening: Yes Do you worry about a steady place to live?: No Do you have any problems with any of the following?: No known problems In the past 12 months,have you had to go without utilities?: No Transportation Issues: No Has anyone in your support network made you feel unsafe?: No Have you or anyone in your house had to go w/o enough food: No - Nursing Vital Signs Nursing Vital Signs: Initial Vital Signs Temperature 97.8 F 11/22/24 16:36 Pulse Rate 100 H 11/22/24 16:36 Respiratory Rate 18 11/22/24 16:36 Blood Pressure 144/109 11/22/24 16:36 O2 Sat by Pulse Oximetry 96 11/22/24 16:36 Pain Scale Pain Intensity 0 - Physical Exam General Appearance: no apparent distress, alert Eye Exam: PERRL/EOMI, eyes nml inspection Ears, Nose, Throat Exam: normal ENT inspection, TMs normal, pharynx normal, moist mucous membranes Neck Exam: normal inspection, non-tender, supple, full range of motion Respiratory Exam: normal breath sounds, lungs clear, airway intact, No respiratory distress Cardiovascular Exam: regular rate/rhythm, normal heart sounds, normal peripheral pulses Gastrointestinal/Abdomen Exam: soft, normal bowel sounds, No tenderness, No mass Back Exam: normal inspection, normal range of motion, No CVA tenderness, No vertebral tenderness Extremity Exam: normal inspection, normal range of motion, pelvis stable Neurologic Exam: alert, oriented x 3, cooperative, normal mood/affect, nml cerebellar function, nml station & gait, sensation nml, other (Right-sided facial droop. 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), No motor deficits Skin Exam: normal color, warm, dry, No rash Lymphatic Exam: No adenopathy SpO2 Interpretation: normal SpO2: 96 O2 Delivery: Room Air - Course Nursing assessment & vital signs reviewed: Yes EKG Interpreted by Me: RATE (91), Sinus Rhythm, NORMAL AXIS, NORMAL INTERVALS, NORMAL QRS - CT Exams Head CT Interpretation: Tele-radiologist Report (CT head is normal) Ordered Tests: Active Orders 24 hr Category Date Time Status Director Government STAT Care 11/22/24 17:16 Active EKG-ER Only STAT Care 11/22/24 17:15 Active IV Insertion STAT Care 11/22/24 17:15 Active Pulse Oximetry (ED) STAT Care 11/22/24 17:15 Active HEAD WITHOUT CONTRAST [CT] Stat Exams 11/22/24 17:16 Taken CBC W DIFF Stat Lab 11/22/24 17:40 Completed CMP Stat Lab 11/22/24 17:40 Completed TROPONIN Q4H Lab 11/22/24 17:40 Completed TROPONIN Q4H Lab 11/22/24 21:30 Ordered TROPONIN Q4H Lab 11/23/24 01:30 Ordered Lab/Rad Data: Laboratory Result Diagrams 11/22/24 17:40 11/22/24 17:40 Laboratory Results 11/22/24 11/22/24 11/22/24 Range/Units 17:40 17:40 17:40 WBC 7.5 (4.23-9.07) x10^3/uL RBC 4.95 (4.63-6.08) x10^6/uL Hgb 14.9 (13.7-17.5) g/dL Hct 42.5 (40.1-51.0) % MCV 85.9 (79.0-92.2) fL MCH 30.1 (25.7-32.2) pg MCHC 35.1 (32.3-36.5) g/dL RDW 12.8 (11.6-14.4) % Plt Count 265 (163-337) x10^3/uL MPV 9.8 (9.4-12.4) fL Gran % 58.1 (34.0-67.9) % Immature Gran % (Auto) 0.4 (0.001-0.429) % Nucleat RBC Rel Count 0.0 (0.00-0.2) % Eos # (Auto) 0.08 (0.04-0.54) x10^3/uL Immature Gran # (Auto) 0.03 (0.001-0.031) x10^3u/L Absolute Lymphs (auto) 2.50 (1.32-3.57) x10^3/uL Absolute Monos (auto) 0.52 (0.30-0.82) x10^3/uL Absolute Nucleated RBC 0.00 (0.00-0.012) x10^3u/L Lymphocytes % 33.2 (21.8-53.1) % Monocytes % 6.9 (5.3-12.2) % Eosinophils % 1.1 (0.8-7.0) % Basophils % 0.3 (0.2-1.2) % Absolute Granulocytes 4.39 (1.78-5.38) x10^3/uL Basophils # 0.02 (0.01-0.08) x10^3/uL Sodium 144 (135-145) mmol/L Potassium 4.1 (3.5-5.1) mmol/L Chloride 102 (98-107) mmol/L Carbon Dioxide 29 (22-30) mmol/L Anion Gap 16.7 H (5-15) MEQ/L BUN 11 (9-20) mg/dL Creatinine 1.00 (0.66-1.25) mg/dL Estimated GFR 101.3 ML/MIN Glucose 110 H (74-106) mg/dL Calcium 9.6 (8.4-10.2) mg/dL Total Bilirubin 0.80 (0.2-1.3) mg/dL AST 38 (17-59) U/L ALT 52 H (0-50) U/L Alkaline Phosphatase 69 (38-126) U/L Troponin I < 0.012 (0.000-0.033) ng/mL Serum Total Protein 8.0 (6.3-8.2) g/dL Albumin 4.9 (3.5-5.0) g/dL - Progress Progress: improved Progress Note: 34-year-old male presents to our ED with right-sided facial droop. Symptoms have been ongoing for approximately [address] head negative for acute intracranial pathology. Laboratory workup essentially nonremarkable. Neuroconsultation advised admission for MRI with contrast MRV RSV COVID testing influenza testing and initiation of acyclovir vancomycin and Rocephin every 12 hours. Patient refused. Patient states he feels fine and is going to leave AMA. AMA form completed Patient is of sound mind. Patient is appropriate to make informed and independent medical decisions. Patient understands that leaving AGAINST MEDICAL ADVICE can result in delayed diagnosis, increased risk of morbidity, mortality, short and long-term disability including . In spite of these risks, patient has decided to leave AGAINST MEDICAL ADVICE. Patient understands that he may return to our ED at any point if he reconsiders. Patient agrees to follow-up with his primary care doctor within 48 hours for reevaluation. Patient voices no other complaints or concerns at this time. We will release patient AGAINST MEDICAL ADVICE per their request. Complexity of problem addressed is moderate acute complicated no critical care time. Complex of data reviewed and analyzed is extensive. Test ordered chest reviewed results analyzed and correlated clinically with history and physical exam. Management discussed with neurologist at approximately 8:40 PM. Risk of complication and or risk of morbidity/mortality of patient management is moderate. Vital stable. Time spent to discharge patient is approximately 15 minutes. Plan of care established for shared decision making. No social determinants of health present to impede follow-up Patient prescribed acyclovir, prednisone. We provided patient with artificial tears in our ED. Patient instructed to use 4 drops 4 times a day for dry eye. Patient to tape his eye shut throughout the night Portions of this note were created with voice recognition technology. There may be grammatical, spelling, punctuation or sound alike errors 11/22/24 20:43 Counseled pt/family regarding: lab results, diagnosis, need for follow-up - Departure Departure Disposition: Home Clinical Impression: Facial droop Condition: Stable Critical Care Time: No Referrals: ANOOP CHO [Primary Care Provider] - Follow up/PCP as directed Additional Instructions: Discharge/Care Plan SOUMYA HASSAN was seen on 11/22/24 in the Emergency Room. The patient was counseled regarding Diagnosis,Lab results, Imaging studies, need for follow up and when to return to the Emergency Room. Prescriptions given: Discharge Note I have spoken with the patient and/or caregivers. I have explained the patient's condition, diagnosis and treatment plan based on the information available to me at this time. I have answered the patient's and/or caregiver's questions and addressed any concerns. The patient and/or caregivers have as good understanding of the patient's diagnosis, condition and treatment plan as can be expected at t his point. The vital signs have been stable. The patient's condition is stable and appropriate for discharge from the emergency department. The patient will pursue further outpatient evaluation with the primary care physician or other designated or consulting physician as outlined in the discharge instructions. The patient and/or caregivers are agreeable to this plan of care and follow-up instructions have been explained in detail. The patient and/or caregivers have received these instruction. The patient/and or caregivers are aware that any significant change in condition or worsening of symptoms should prompt an immediate return to this or the closest emergency department or call 911. Prescriptions: Acyclovir 800 mg [Acyclovir] 400 mg PO 5XD 5 Days #13 tablet Prednisone 10 mg [Deltasone 10 mg] 60 mg PO DAILY 5 Days #30 tablet
[2024-11-22 17:43] LABS: Absolute Neutrophil Ct (ANC) 4.39 x10^3/uL (1.78-5.38); BASOPHIL % 0.3 % (0.2-1.2); Basophil (Absolute #) 0.02 x10^3/uL (0.01-0.08); Eosinophil % 1.1 % (0.8-7.0); Eosinophil (Absolute #) 0.08 x10^3/uL (0.04-0.54); Hematocrit 42.5 % (40.1-51.0); Hemoglobin 14.9 g/dL (13.7-17.5); IMMATURE GRAN # 0.03 x10^3u/L (0.001-0.031); IMMATURE GRAN % 0.4 % (0.001-0.429); Lymphocytes % 33.2 % (21.8-53.1); Mean Cell Volume 85.9 fL (79.0-92.2); Mean Corpuscular Hemoglobin 30.1 pg (25.7-32.2); Mean Corpuscular Hgb Concent. 35.1 g/dL (32.3-36.5); Mean Platelet Volume 9.8 fL (9.4-12.4); Monocyte (Absolute #) 0.52 x10^3/uL (0.30-0.82); Monocytes % 6.9 % (5.3-12.2); Neutrophil % 58.1 % (34.0-67.9); Platelet Count 265 x10^3/uL (163-337); Red Blood Count 4.95 x10^6/uL (4.63-6.08); Red Cell Distribution Width 12.8 % (11.6-14.4); White Blood Count 7.5 x10^3/uL (4.23-9.07)
[2024-11-22 18:01] LABS: ALBUMIN 4.9 g/dL (3.5-5.0); ANION GAP 16.7 MEQ/L (5-15); BILIRUBIN,TOTAL 0.8 mg/dL (0.2-1.3); Calcium 9.6 mg/dL (8.4-10.2); EST GLOMERULAR FILTRATION RATE 101.3 ML/MIN; Potassium 4.1 mmol/L (3.5-5.1)
[2024-11-22 20:08] VITALS: BP 162/103
[2024-11-22 20:10] VITALS: PULSE 93; RESP 24
--- NOTE | 2024-11-22 20:44 | PCM.CONS ---
History of Present Illness - Neuro Consultation Date of Consultation Date: 11/22/24 (R facial weakness) ED Arrival Date & Time: 11/22/24 15:45 Patient is a 34 yr. old RH gentleman who presents with hx of pink eye... per self report... w periorbital edema.... R facial swelling/ droop... onset 1 week ago/ + pink eye on 11/12/2024.... Patient was given eye drops... for treatment of moxifloxacin 0.5% to R eye.... for tx of pink eye..... Patient noted 2-3 day hx of facial swelling R peripheral facial droop w eyelid involvement.... + carbajal's phenomenon Number of Documented HPI Elements * (Elements are: Location, Severity, Timing, Quality, Duration, Context, Modifying Factors, Signs, Symptoms) Review Of Systems Review Of Systems Guide If Unable to Obtain, document why you are unable to obtain and how you attempted to obtain system review. 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 Ophthalmology Clear Ears, Nose, Throat Clear Cardiovascular Clear Respiratory Clear Gastrointestinal Clear Genitourinary Clear Musculoskeletal Clear Endocrine Clear Hematologic, Lymphatic Clear Integumentary Clear Allergy/Immunology Clear Medical History Unable to assess Medical History * Clear Other Medical History Past Procedures Clear Other Past Procedures Allergies Unable to assess Allergies * Clear Other Allergies Medications Unable to assess Anti-Coagulants * Clear Other Anti-Coagulants Anti-Platelets * Clear Other Anti-Platelets Other Medications Moxofloxacin 0.5% eye drops to R eye Social History Alcohol Use Clear Drug Use Clear Tobacco Use Clear Other Social History lives at home Family History Pertinent Family History Clear Other Family History Vital Signs * Unable to obtain Date & Time 11/22 07:26 Recorded By bob rutledge Afebrile Temperature (F/C) 98.2 / 36.8 Blood Pressure 170/129 mm Hg Heart Rate 109 bpm Respiration Rate 24 bpm O2 Sat 97 % POC Glucose Weight LB/KG 200 / 90.7 BMI Means of Collecting Patient Weight Patient weighed at hospital Pain Assessment 0 -None Oxy.Delivery Room Air EKG Rhythm Sinus Rhythm Comments Exam Exam * Neuro exam: Patient awake/ alert/ oriented in 4 spheres. Speech is fluent/ naming is intact/ Repetition intact/ no evidence of aphasia noted. No dysarthria noted. 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 (=) 4-2mm bilaterally/ EOMs intact in all directions of gaze/symmetric facial sensation V1-2 -3 bilaterally/ symmetrical facial upper/ lower noted/ audition intact/ tongue midline/ phonation intact/ + gag reflex intact/ SCMs(=) Motor exam- no pronator drift/ 4/5+ bilateral UEs/ LEs proximal to distal Sensory-intact to light touch throughout bilateral UEs/ LEs/ no agraphesthesia/ no astereognosis/ no double simultaneous extinction DTRs- deferred/ no babinski sign illicited Cerebellar- finger to nose/ heel-de oliveira (=)/ no dysmetria noted/ no overshoot nystagmus/ no rebound phenomenon Gait- not tested Fine motor- no resting tremor/ no myoclonus/ no abnormal involuntary movements/ no choreiform movements Gen: No apparent distress, non-toxic appearing Psych: normal affect HEENT: No visible bruising, no mucosal pallor Ophth: No scleral icterus, no conjunctival injection or proptosis Neck: No nuchal rigidity, turns neck without difficulty Resp: normal respirations, no distress, speaking in full sentences CV: No visible edema in LE Abd: No abd distention noted MSK: No joint swelling, erythema noted. No contractures noted. Skin: No pallor. No visible rashes or bruising Clinician assisting with exam ANGELIA Javier NIHSS Unable to assess Recorded by: bob rutledge Recorded On: 11/22 07:31 NIHSS Score: 3 see details labs And Imaging Labs Available ? Clear PT Seconds INR PTT Seconds 110 mg/dL 7.5 mcL 14.9 g/dL 42.5 % 265 mcL Troponin mg/mL Na mEq/L K mEq/L BUN mg/dL Cr mg/dL Other labs AG 16.[address] Brain Findings Clear Additional CT Image Types Reviewed Other CT Findings MRI Brain Findings Clear Additional MRI Image Types Reviewed Other MRI Findings Other Imaging Studies/Findings Assessment Assessment * 1. 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 follow trough levels/ - ID consultation - artificial tears - eye patch to R eye when sleeping This tele-neurology consultation was performed via two-way videoconferencing. I have discussed the case with ED physician, RN and patient/family. They understand and agree with this plan. ALL ABOVE IF NO CONTRAINDICATIONS: After the above preliminary workup is completed, further decisions regarding diagnosis and/or management can be made by primary team and/or in-house neurologist. Please re-consult our Teleneurology service, if in-house neurology not available, with additional questions, concerns, or changes in this patients neurologic status Disposition * Portions of the evaluation were not assessed due to the following Other Diagnosis Impression * Other Diagnosis * R lower motor neuron Facial palsy Case Discussed With * Dr. De La Cruz THROMBOLYSIS INCLUSION/EXCLUSION CRITERIA Inclusion Criteria Must answer YES to ALL in order to proceed with thrombolysis. Clear All Neurological deficit considered to be disabling within 4.5 h of ischemic stroke symptom onset or patient last known well BP < 185/110 Glucose > 50 mg/dL Exclusion Criteria Physicians with expertise in cerebrovascular disease may deem thrombolysis to be reasonable in the presence of one or more exclusion criteria after careful consideration of potential risk versus benefit to the patient. Clear All Acute head trauma or recent severe head trauma within the previous 3 months Symptoms suggesting subarachnoid hemorrhage Elevated blood pressure despite IV medications (>185/>110 mm Hg) Known coagulopathy platelets <100,000/mm3, INR >1.7, aPTT >40s, PT >15s (do not wait for labs unless known thrombocytopenia or anticoagulation) Thrombin inhibitors or factor Xa inhibitors unless aPTT, INR, platelet count, ECT, TT, or appropriate direct factor Xa activity assays are normal or the patient has not received a dose for >48 hours (with normal renal function) LMWH on anticoagulant (full treatment) dosing within < 24 hours Concomitant administration of IV Abciximab, or IV aspirin within 90 minutes after the start of IV alteplase initiation Extensive regions of marked clear and obvious hypodensity representing early ischemic changes irreversible injury Acute intracranial hemorrhage History of intracranial hemorrhage Symptoms consistent with infective endocarditis Known or suspected aortic arch dissection GI malignancy or recent GI bleed within 21 days Mild nondisabling stroke (NIHSS 0-5) Prior ischemic stroke within previous 3 months Intracranial/intraspinal surgery within 3 months Intra-axial intracranial neoplasm Relative Exclusion Criteria Physicians with expertise in cerebrovascular disease may deem thrombolysis to be reasonable in the presence of one or more exclusion criteria after careful consideration of potential risk versus benefit to the patient. (reasonable if benefits in moderate / severe stroke outweigh increased risk of uterine bleeding; use < 14 days after delivery is uncertain) Seizure at onset with postictal residual neurological impairments that are not t hought to be due to ischemic stroke Major surgery or major(non - head) trauma within previous 14 days ME within 3 months if non - STEMI or STEMI involving left anterior myocardium, right or inferior myocardium - treatment is reasonable History of previous ophthalmic hemorrhage including diabetic hemorrhagic retinopathy(increased risk of visual loss vs benefits of reduced stroke - related neurological deficits) Giant unruptured / unsecured intracranial aneurysm > 10 mm Unruptured / untreated intracranial vascular malformations Acute pericarditis with AIS of mild disability(if severe disability, treatment reasonable and urgent cardiology consultation warranted) Known left atrial or ventricular thrombus, for patients presenting with AIS likely to produce mild disability(treatment reasonable if severe disability) Recent / active menorrhagia with significant hypotension or anemia Potential bleeding diathesis or coagulopathy(warfarin use and INR ?1.7 or PT < 15) Intracranial arterial dissection High(> 10) burden of cerebral microbleeds on MRI Arterial puncture at non - compressible site within previous 7 days Concomitant IV glycoprotein IIb / IIIa inhibitors tirofiban and eptifibatide Current systemic malignancy(reasonable if > 6 month life expectancy and no contraindications such as coagulation abnormalities, recent surgery, systemic bleeding) Initial blood glucose concentration < 50 mg / dL or > 400 mg / dL with subsequent normalization One or more of the relative contraindications render IV Thrombolysis inadvisable in my judgment. Clear THROMBOLYSIS RECOMMENDATION Thrombolysis Recommended ? 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 R29.810 Facial weakness R29.90 Unspecified symptoms and signs involving the nervous system BILLING CHARGE CODE CHARGE DESCRIPTION DIAGNOSES DATE OF SERVICE G0427 G0427 - Emergent Level 3 -ComplexInitial Consult - Comprehensive Hx, Comprehensive Exam, High Complexity MDM G52.9, G51.0, R29.810, R29.90 Nov 22, 2024, 07:38 pm Attestation Interaction Mode * Video * First Video Attempt System Logged: 11/22/2024 19:11 11/22/2024 19:11 mm/dd/yyyy hh:mm (24 Hr) Phone * First Phone Attempt System Logged: 11/22/2024 19:17 11/22/2024 19:17 mm/dd/yyyy hh:mm (24 Hr) Evaluation Duration * 42 min Your Current Location Enter Current Zip Code * [address] Last saved 1m Providers: Attending Provider: ED Provider: ISAIAH DE LA CRUZ Consulting Provider: BOB BENITEZ DO cc:: The requesting physician will be sent a copy of the consult. - History of Present Illness HPI: The patient is a 34M Review of Systems - Review of Systems Review of Systems (Narrative): Pertinent positive and negative findings as per HPI. All other systems negative. - Past Medical History Past Medical History: Yes Neurological History: Other - Past Surgical History Past Surgical History: Yes Musculskeletal Surgical Hx: Orthopedic Surgery Other Surgical History: left knee - Social History Smoking Status: Never smoker Exposure to second hand smoke: No Alcohol: Occasionally Drug Use: none - Social Determinants of Health Will the patient participate in the screening: Yes Do you worry about a steady place to live?: No Do you have any problems with any of the following?: No known problems In the past 12 months,have you had to go without utilities?: No Have you or anyone in your house had to go without enough: No Transportation Issues: No Has anyone in your support network made you feel unsafe?: No Physical Exam - Vital Signs Vital Signs: Vital Signs - 24 hr 11/22/24 11/22/24 11/22/24 16:36 17:00 18:54 Temperature 97.8 F Pulse Rate 100 H 78 Respiratory 18 18 Rate Blood Pressure 144/109 143/99 O2 Sat by Pulse 96 96 98 Oximetry 11/22/24 11/22/24 11/22/24 19:32 19:40 19:50 Temperature Pulse Rate 87 99 H Respiratory 22 Rate Blood Pressure O2 Sat by Pulse 98 98 97 Oximetry 11/22/24 11/22/24 11/22/24 19:56 20:00 20:09 Temperature Pulse Rate 99 H 93 H Respiratory 16 24 Rate Blood Pressure 162/103 O2 Sat by Pulse 96 96 98 Oximetry Results - Labs Lab/Micro Results: Lab Results-Last 24 Hours 11/22/24 11/22/24 11/22/24 Range/Units 17:40 17:40 17:40 WBC 7.5 (4.23-9.07) x10^3/uL RBC 4.95 (4.63-6.08) x10^6/uL Hgb 14.9 (13.7-17.5) g/dL Hct 42.5 (40.1-51.0) % MCV 85.9 (79.0-92.2) fL MCH 30.1 (25.7-32.2) pg MCHC 35.1 (32.3-36.5) g/dL RDW 12.8 (11.6-14.4) % Plt Count 265 (163-337) x10^3/uL MPV 9.8 (9.4-12.4) fL Gran % 58.1 (34.0-67.9) % Immature Gran % (Auto) 0.4 (0.001-0.429) % Nucleat RBC Rel Count 0.0 (0.00-0.2) % Eos # (Auto) 0.08 (0.04-0.54) x10^3/uL Immature Gran # (Auto) 0.03 (0.001-0.031) x10^3u/L Absolute Lymphs (auto) 2.50 (1.32-3.57) x10^3/uL Absolute Monos (auto) 0.52 (0.30-0.82) x10^3/uL Absolute Nucleated RBC 0.00 (0.00-0.012) x10^3u/L Lymphocytes % 33.2 (21.8-53.1) % Monocytes % 6.9 (5.3-12.2) % Eosinophils % 1.1 (0.8-7.0) % Basophils % 0.3 (0.2-1.2) % Absolute Granulocytes 4.39 (1.78-5.38) x10^3/uL Basophils # 0.02 (0.01-0.08) x10^3/uL Sodium 144 (135-145) mmol/L Potassium 4.1 (3.5-5.1) mmol/L Chloride 102 (98-107) mmol/L Carbon Dioxide 29 (22-30) mmol/L Anion Gap 16.7 H (5-15) MEQ/L BUN 11 (9-20) mg/dL Creatinine 1.00 (0.66-1.25) mg/dL Estimated GFR 101.3 ML/MIN Glucose 110 H (74-106) mg/dL Calcium 9.6 (8.4-10.2) mg/dL Total Bilirubin 0.80 (0.2-1.3) mg/dL AST 38 (17-59) U/L ALT 52 H (0-50) U/L Alkaline Phosphatase 69 (38-126) U/L Troponin I < 0.012 (0.000-0.033) ng/mL Serum Total Protein 8.0 (6.3-8.2) g/dL Albumin 4.9 (3.5-5.0) g/dL - Radiology Orders Radiology Orders: Radiology Procedures Category Date Time Status HEAD WITHOUT CONTRAST [CT] Stat Exams 11/22/24 17:16 Taken Impressions & Recommendations - ED Arrival Time ED Arrival Date & Time: ED Arrival Date and Time 11/22/24 15:45 Last known well time: - NIHSS IV Thrombolysis Standard of Care: IV thrombolysis as a standard of care in acute stroke discussed with ISAIAH TRINH. Risk, benefits, and options of IV thrombolytic therapy for acute ischemic stroke were discussed with the patient/family SOUMYA GAGE MO. We discussed that use of IV tenecteplase is in line with national stroke guidelines. We discussed that risks of IV thrombolytic use include intracranial hemorrhage, other fatal bleeding risks, and angioedema. Alternatives of treatment, including not proceeding with thrombolytic therapy were discussed. - Recommendations Recommendations: -Neuro checks, NIHSS, vital signs monitoring as per post tenecteplase protocol -Repeat non contrast head CT or noncontrast MRI brain 24 hours after IV thrombolyltic administration. -Obtain STAT non contrast head CT if there are new neurological deficits, worsening of current deficits, or with complaint of severe headache. Notify Neurology JENNIFER of changes in neurological exam. -Nicardipine gtt as needed to maintain BP< 180/105 x 24hr post tenecteplase administration. -Monitor for angioedema -SCD's for DVT prophylaxis. Work up: -Basic labs (CBC, BMP, TSH+T4) if not done already. -INR,PTT if not done already -Fasting Lipid Panel and Hgb A1c -Transthroacic echocardiogram [with bubble study] -EKG + Telemetry- monitor for A-FIB Secondary Stroke Prevention -Hold off on antiplatelet therapy x 24 hr post IV thrombolytic therapy Decision to initiate antiplatelet therapy, or anticoagulation if needed, will be based on repeat imaging at 24 hour post thrombolytic administration. -If not medical contraindication, start high intensity statin. Eg. Atrovastatin 80 mg daily Risk Factor Management -HTN control: BP <180/105 for first 24 hr post tenecteplase -If diabetic, optimize glucose control: ad terminal makeup operator goal HgA1c <7 -HLD control: Long-term goal LDL <70. High intensity statin recommended. Moderate intensity statin in patients > 75 years. -Smoking Alcohol Use Drug use cessation counseling Stroke Rehabilitation: -Physical therapy, occupational therapy, speech therapy consults -Social work and case management consults for help with discharge needs. Impression and recommendation were discussed with Dr. ISAIAH DE LA CRUZ Thank you for allowing us to participate in this patient's care. Please call [facility] with questions, concerns, or change in patient's neurological status. This consult was performed via secure telemedicine audio/visual platform with [ ] RN assisting at bedside. Patient identity verified and consent obtained. TIQ recieved at [ ] Neuro Cart Time: Delays in Patient Encounter: Assessment & Plan - Encounter Encounter: "The entirety of this encounter was performed via Telemedicine using audio and visual "
[2024-11-22 20:50] VITALS: O2SAT 96
[2024-11-22] MEDS ORDERED: DELTASONE 20 MG ONE (20:51)
[2024-11-22] MEDS ORDERED: Artificial Tears 15 ML OP ONE (20:51)
[2024-11-22] MEDS: DELTASONE 20 MG PO ONE (20:52)
[2024-11-22] MEDS ORDERED: ACYCLOVIR ONE (20:54)
[2024-11-22] MEDS: ACYCLOVIR PO ONE (20:55)
[2024-11-22] MEDS: Artificial Tears 15 ML OP STA (21:04)
--- NOTE | 2024-11-23 08:40 | XRAY ---
Indication: Facial droop. Multiple contiguous axial images obtained through the head without contrast. Comparison: December 07, 2013 Normal appearing brain parenchyma, ventricles, and bony calvarium. Visualized paranasal sinuses and mastoid air cells are clear. Impression: Continued normal CT head without contrast exam.
== END 2024-11-22 21:07 | disposition left against medical advice (07) ==
LOC: ED 15:45
DX: R29.810 Facial weakness (principal); H57.89 Other specified disorders of eye and adnexa; Z79.52 Long term (current) use of systemic steroids; Z79.899 Other long term (current) drug therapy
CPT/HCPCS: 36415; 70450; 80053; 84484; 85025; 93005; 93041; 94760; 99284; 99285; A9270-GY